=== PATIENT | female | born 1995 | race Caucasian/White ===

== ENCOUNTER 2020-05-10 15:46 | Emergency (ER) | payer MEDICAID ==
[2020-05-10 15:57] VITALS: BP 121/90
[2020-05-10 16:36] LABS: BILIRUBIN,URINE NEGATIVE (NEGATIVE); CLARITY,URINE CLEAR (CLEAR); GLUCOSE, URINE (UA) NEGATIVE (NEGATIVE); KETONES,URINE (UA) NEGATIVE (NEGATIVE); LEUKOCYTE ESTERASE, URINE NEGATIVE (NEGATIVE); NITRITE,URINE NEGATIVE (NEGATIVE); OCCULT BLOOD,URINE SMALL (NEGATIVE); PH,URINE 5.5 PH (5.0-7.5); PROTEIN,URINE NEGATIVE (NEGATIVE); UROBILINOGEN,URINE 0.2 (NORMAL) E.U./dL (NORMAL)
[2020-05-10 16:37] LABS: HCG UR QUAL NEGATIVE
[2020-05-10 16:40] LABS: BASOPHILS # (AUTO) 0.1 10^3/uL (0.0-0.1); BASOPHILS % (AUTO) 0.8 %; EOSINOPHILS % (AUTO) 0.4 %; HGB - HEMOGLOBIN 15.2 g/dL (12.0-16.0); LYMPHOCYTES # (AUTO) 2.2 10^3/uL (1.5-3.5); LYMPHOCYTES % (AUTO) 21.6 %; MEAN CORPUSCULAR HEMOGLOBIN 28.3 pg (27.0-31.0); MEAN CORPUSCULAR HGB CONC 32.4 g/dL (32.0-36.0); MEAN CORPUSCULAR VOLUME 87.2 fL (81.0-99.0); MEAN PLATELET VOLUME 9.6 fL (7.9-10.8); MONOCYTES # (AUTO) 0.4 10^3/uL (0.0-1.0); NEUTROPHILS # (AUTO) 7.5 10^3/uL (1.5-6.6); NEUTROPHILS % (AUTO) 72.6 %; PLT - PLATELET COUNT 343 10^3/uL (130-450); RED BLOOD COUNT 5.38 10^6/uL (4.20-5.40); RED CELL DISTRIBUTION WIDTH 13.1 % (12.0-15.0); WHITE BLOOD COUNT 10.3 x10^3/uL (4.8-10.8)
[2020-05-10 16:43] LABS: BACTERIA,URINE Rare /HPF (None Seen); SQUAMOUS EPITHELIAL CELL,UR MOD Squamous (<= Few)
--- NOTE | 2020-05-10 17:11 | ED Physician Documentation ---
History of Present Illness - Stated complaint Stated Complaint: BLOOD IN STOOL - Chief complaint Chief Complaint: Abd Pain - History of Present Illness Timing: How many weeks ago (4) - Additonal information Additional information: 24-year-old female presents the emergency department for concerns that she may be having rectal bleeding or blood in her stool. She reports that for much of the last month she has been having very soft stools which is unusual for her. She also feels that they are discolored or red. Over the last 2 to 3 days she has been having some urgency when defecating and feels that her last stools looked fatty. She reports a longstanding history of constipation. When she was a child she had difficulty with bowel elimination and did require a surgery to help correct this. She is unclear with me what that surgical procedure was. Patient is currently finishing her menstrual cycle. She denies abdominal pain, fevers. She reports that she has lost her appetite for much of the last month and has lost about 10 pounds in weight. She denies night sweats vomiting. She just moved to [facility] from [place] to be with her boyfriend. She denies taking any routine prescribed medications. Denies taking NSAIDs or blood thinners. Review of Systems Constitutional: reports: Weight Loss Eyes: reports: Reviewed and negative Ears: reports: Reviewed and negative Nose: reports: Reviewed and negative Throat: reports: Reviewed and negative Cardiac: reports: Reviewed and negative Respiratory: reports: Reviewed and negative GI: reports: Other (Soft loose stools that are discolored. Sometimes fatty) : reports: Reviewed and negative Skin: reports: Reviewed and negative PD PAST MEDICAL HISTORY - Allergies Allergies/Adverse Reactions: Allergies Allergy/AdvReac Type Severity Reaction Status Date / Time seafood Allergy Unknown Uncoded 05/10/20 15:57 PD ED PE NORMAL - General General: Alert and oriented X 3, No acute distress, Well developed/nourished - Neck Neck: Supple, no meningeal sign, No adenopathy - Cardiac Cardiac: RRR, No murmur - Respiratory Respiratory: No respiratory distress - Abdomen Abdomen: Normal bowel sounds, Soft, Non tender, Non distended - Rectal Rectal: Other (Digital rectal exam unremarkable. No external hemorrhoids noted. Small amount of stool seen on gloved finger was brown in color) - Back Back: No CVA TTP - Derm Derm: Normal color, Warm and dry, No rash - Neuro Neuro: Alert and oriented X 3 Eye Opening: Spontaneous Motor: Obeys Commands Verbal: Oriented GCS Score: 15 Results - Vitals Vitals: Vital Signs - 24 hr 05/10/20 15:53 Temperature 37 C Heart Rate 94 Respiratory 16 Rate Blood Pressure 121/90 H O2 Saturation 97 Oxygen O2 Source Room air - Labs Labs: Laboratory Tests 05/10/20 05/10/20 05/10/20 16:08 16:08 16:30 WBC 10.3 RBC 5.38 Hgb 15.2 Hct 46.9 MCV 87.2 MCH 28.3 MCHC 32.4 RDW 13.1 Plt Count 343 MPV 9.6 Neut # (Auto) 7.5 H Lymph # (Auto) 2.2 [place] # (Auto) 0.4 Eos # (Auto) 0.0 Baso # (Auto) 0.1 Absolute Nucleated RBC 0.00 Nucleated RBC % 0.0 Urine Color YELLOW Urine Clarity CLEAR Urine pH 5.5 Ur Specific [place] >=1.030 H >=1.030 H Urine Protein NEGATIVE Urine Glucose (UA) NEGATIVE Urine Ketones NEGATIVE Urine Occult Blood SMALL H Urine Nitrite NEGATIVE Urine Bilirubin NEGATIVE Urine Urobilinogen 0.2 (NORMAL) Ur Leukocyte Esterase NEGATIVE Urine RBC 6-10 H Urine WBC 0-3 Ur Squamous Epith Cells MOD Squamous H Urine Bacteria Rare Ur Microscopic Review INDICATED Urine Culture Comments NOT INDICATED Urine HCG, Qual NEGATIVE - Rads (name of study) Pelvic US Radiology: See rad report, Other PD MEDICAL DECISION MAKING - ED course Complexity details: reviewed results, re-evaluated patient, considered differential, d/w patient ED course: 24-year-old female presents to the emergency department for concerns that she has been having rectal bleeding or bloody stools for much of the last month. The character of her stool has changed. It is now soft and loose whereas it had previously been constipating. On digital rectal exam today there is only a small amount of brown stool on the glove. Not enough to send for Hemoccult. The pictures that the patient shows me on her phone does indeed look a darker nick brown but not frankly bloody or with obvious melena. Her hemoglobin today is normal. Her liver function tests are also unremarkable. The pictures that the patient showed me on her phone do not appear to be blo david. There was no abdominal tenderness on exam. No indication today for CT imaging. I have discussed this case with the patient. She agrees that she will schedule with her primary care doctor. Given the history of constipation and now loose stools referral or follow-up with a GI doctor may be indicated. Emergent return precautions were discussed Departure - Departure Disposition: 01 Home, Self Care Clinical Impression: Stool color abnormal Condition: Stable Record reviewed to determine appropriate education?: Yes Comments: Your labs today including your hemoglobin are normal. The pictures you show me on the phone do not look like bloody stools. However with your history of constipation and now soft stools I think that it would be advised for you to be seen by your primary doctor and consider being referred to a ram car operator where a colonoscopy could be performed. Please return to the emergency department if you have bright red stools, you have suddenly severe abdominal pain, or any fevers.
[2020-05-10 17:26] LABS: ALBUMIN 4.9 g/dL (3.2-5.5); ALBUMIN/GLOBULIN RATIO 1.4 (1.0-2.2); BILIRUBIN,TOTAL 1.1 mg/dL (0.2-1.0); CALCIUM 9.9 mg/dL (8.5-10.3); CREATININE 0.7 mg/dL (0.4-1.0); TOTAL PROTEIN 8.5 g/dL (6.7-8.2)
== END 2020-05-10 17:45 | disposition home or self-care (01) ==
LOC: ED 15:46
DX: R19.5 Other fecal abnormalities (principal)
CPT/HCPCS: 36415; 80053; 81001; 81003; 81025; 83690; 85025; 87086; 99283; 99284